=== PATIENT | female | born 1955 | race Caucasian/White ===

== ENCOUNTER 2018-04-28 01:35 | Outpatient (CLI) | payer BC, SELFPAY ==
[2018-04-28 08:54] LABS: CREATININE 0.57 mg/dL (0.55-1.02)
--- NOTE | 2018-04-28 09:53 | DI.CT_ITS ---
SYMPTOM/DIAGNOSIS: MICROSCOPIC HEMATURIA, R31.[address]: The study was carried out according to the usual protocol with an intravenous administration of 100 cc's of Omnipaque 350. The liver, gallbladder, pancreas, spleen and adrenals appear unremarkable. The kidneys are intact. There is no evidence of hydronephrosis. Symmetrical excretion of contrast material is identified. There is no evidence of a cyst or mass. The ureters appear intact. The bladder appears normal. The reproductive organs as visualized are unremarkable. The bowel is unremarkable save for scattered diverticula. There is no evidence of diverticulitis. There are atherosclerotic changes involving the aorta without evidence of an aneurysm. Evaluation of the bony structures reveals a partially sacralized L 5. There is a mild anterior listhesis of L 4 and L 5 which is associated with facet joint disease. The bony structures are otherwise unremarkable. SUMMARY: Normal CT urogram.
[2018-04-28] MEDS: Omnipaque 350 MG/ML 100 ML BTL IJ (09:54)
== END 2018-04-28 01:55 ==
PROVIDERS: PCP Physician Assistant Medical; Visit Provider Nurse Practitioner Gerontology
DX: R31.29 Other microscopic hematuria (principal); K57.30 Diverticulosis of large intestine without perforation or abscess without bleeding; N20.0 Calculus of kidney; Z13.89 Encounter for screening for other disorder
CPT/HCPCS: 36415; 74178; 82565; J3490

== ENCOUNTER 2018-05-12 06:29 | Day surgery (SDC) | payer BC, SELFPAY ==
[2018-05-12] VITALS (7 sets, daily range): BP systolic 115–144; BP diastolic 49–89; PULSE 61–80; RESP 16–21; TEMP 36.6–37; O2SAT 95–99
[2018-05-12] MEDS: Sulfameth/Trimeth DS TAB 1 TAB PO (06:49)
[2018-05-12] MEDS: Lactated Ringers 1,000 ML 80 ML IV (07:05)
[2018-05-12] MEDS: Lidocaine 2% Jelly 11 ML SYR (07:40)
--- NOTE | 2018-05-12 08:01 | PDOC.DSDIS_ITS ---
Discharge Plan Disposition Patient Disposition: HOME Condition: Stable Discharge Details Reason For Visit: MIROSCOPIC HEMATURIA Attending Provider: Osman Gee Primary Care Provider: Mita Gonzalez Home Meds and New Rx's Prescriptions: No Action trazodone 50 mg tablet 50 mg PO DAILY PRNRF: 0 budesonide-formoterol [Symbicort] 80-4.5 mcg/actuation HFA aerosol inhaler 2 puff IH BID RF: 0 vit C-vit V-poexgi-dgkf-lutein [PreserVision Lutein] 226 mg-200 unit -5 mg- 0.8 mg Capsule 1 cap PO PRN PRNRF: 0 Discharge Instructions Additional Instructions: F/U yearly for urinalysis (can be in our office or with PCP) Activity:: Activity as Tolerated Diet:: As Tolerated
[2018-05-12] MEDS: Ketorolac 15 MG/ML VIAL IVP (08:17)
[2018-05-12] MEDS: Phenazopyridine 200 MG TAB PO (08:50)
--- NOTE | 2018-05-12 09:57 | W.PM.DSUDISC ---
Discharge Plan Disposition Patient Disposition: HOME Condition: Stable Discharge Details Reason For Visit: MIROSCOPIC HEMATURIA Attending Provider: Osman Gee Primary Care Provider: Mita Gonzalez Home Meds and New Rx's Prescriptions: No Action trazodone 50 mg tablet 50 mg PO DAILY PRNRF: 0 budesonide-formoterol [Symbicort] 80-4.5 mcg/actuation HFA aerosol inhaler 2 puff IH BID RF: 0 vit C-vit Q-spvkjp-rjff-lutein [PreserVision Lutein] 226 mg-200 unit -5 mg-0.8 mg Capsule 1 cap PO PRN PRNRF: 0 Discharge Instructions Additional Instructions: F/U yearly for urinalysis (can be in our office or with PCP) Stand Alone Forms: [facility] ([facility]) Activity:: Activity as Tolerated Diet:: As Tolerated Discharge Orders Discharge Orders: Discharge Order (Routine); Ordered 05/12/18 Ordered By: Osman Gee Discharge Data Discharge Date/Time-TO BE ENTERED AT DEPARTURE: 05/12/18 09:20 Discharge Comment: dc'd home with friend via private car. stable.
--- NOTE | 2018-05-12 10:38 | ROE_ITS ---
REPORT OF OPERATIVE PROCEDURE DATE OF PROCEDURE May 12, 2018 PREOPERATIVE DIAGNOSIS Microscopic hematuria. POSTOPERATIVE DIAGNOSES Microscopic hematuria. PROCEDURES Cystoscopy. SURGEON Osman Gee M.D. ANESTHESIA MAC with local. COMPLICATIONS None. HISTORY This is a 63-year-old woman who has a history of microscopic hematuria, she was evaluated with a CT u rogram, which appeared normal. She presents now for cystoscopy to complete her hematuria workup. OPERATIVE REPORT The patient was brought to the operating room on 05/12/2018. She was given Monitored Anesthesia Care by LMA and placed in the dorsal lithotomy position. Her genitalia was prepped and draped. A #22 [place] rigid cystoscope was passed through the urethra into the bladder. The bladder was then inspected using both a 30 and a 70-degree lenses. Both ureteral orifices appeared normal. Each orifice could be seen gudelia and no blood was seen coming from either side. The remainder of the bladder was smooth walled with no papillary or nodular tumors. These findings we re confirmed with re-inspection of the bladder using the 70-degree lens. Based on this examination, I find no evidence of significant uropathology in the bladder. The current AUA recommendation is a yearly urinalysis and a repeat workup in three to five years if t he hematuria persists for that stretch of time. The patient tolerated the procedure well with no complications. CC: Mita Gonzalez PA-C
== END 2018-05-12 09:20 | disposition home or self-care (01) ==
PROVIDERS: PCP Physician Assistant Medical; Visit Provider Urology
PROC: 0TJB8ZZ Inspection of Bladder, Via Natural or Artificial Opening Endoscopic (ICD-10-PCS; CPT 52000; principal; 2018-05-12 07:30)
DX: R31.29 Other microscopic hematuria (principal); J44.9 Chronic obstructive pulmonary disease, unspecified; F17.210 Nicotine dependence, cigarettes, uncomplicated
CPT/HCPCS: 52000; J1100; J1885; J2250; J2405

== ENCOUNTER 2025-02-01 08:08 | Outpatient (CLI) | payer MEDICARE, SELFPAY ==
--- NOTE | 2025-02-01 08:00 | RT.EKG_ITS ---
APPROVED REPORT Exam: Resting ECG Reason for Exam: SOB Patient Location: O HR:68 bpm ECG Measurements Heart Rate 68 AXIS DE 161 P 21 QRSd 127 QRS 15 QT 404 T 27 QTc 430 Conclusion Sinus rhythm...normal P axis, V-rate 50- 99 Artifact Otherwise normal ECG
== END 2025-02-01 08:09 | disposition home or self-care (01) ==
LOC: DI.CARD 08:09
PROVIDERS: PCP Physician Assistant Medical; Visit Provider Internal Medicine Cardiovascular Disease
DX: R06.02 Shortness of breath (principal)
CPT/HCPCS: 93010

== ENCOUNTER → 2025-02-01 11:00 | Outpatient (BNVA) | payer MEDICARE, SELFPAY | PROVIDERS: PCP Physician Assistant Medical; Referring Provider Physician Assistant Medical; Visit Provider Internal Medicine Cardiovascular Disease | DX: I25.10 Atherosclerotic heart disease of native coronary artery without angina pectoris (principal); R06.02 Shortness of breath | CPT/HCPCS: 99203; 93005 ==